=== PATIENT | female | born 1960 | race Asian ===

== ENCOUNTER 2022-02-17 07:06 | Day surgery (SDC) | payer OTHER ==
[~2022-02-17] VITALS: Ht 167.6 cm; Wt 71.2 kg
[2022-02-17] MEDS ORDERED: diphenhydrAMINE 50 MG/ML VIAL ONE (08:28)
[2022-02-17] MEDS ORDERED: MIDAZOLAM 5 MG/5 ML VIAL ONE (08:29)
[2022-02-17] MEDS ORDERED: fentaNYL citrate 0.05 MG/ML VIAL ONE (08:29)
[2022-02-17] MEDS ORDERED: MIDAZOLAM 5 MG/5 ML VIAL IV ONE (09:40)
[2022-02-17] MEDS ORDERED: fentaNYL citrate 0.05 MG/ML VIAL IVP ONE (09:40)
== END 2022-02-17 10:35 | disposition home or self-care (01) ==
LOC: MDS 07:06 → MMU 07:06 → MDS 10:35
PROVIDERS: ATTEND Internal Medicine Gastroenterology
DX: Z12.11 Encounter for screening for malignant neoplasm of colon (principal); K64.8 Other hemorrhoids; K29.50 Unspecified chronic gastritis without bleeding; E11.9 Type 2 diabetes mellitus without complications; Z20.822 Contact with and (suspected) exposure to COVID-19; Z79.899 Other long term (current) drug therapy
CPT/HCPCS: 43239; 45378; 87426; 88305; 88312; 88313; 88342; J2250; J3010; J1200